=== PATIENT | female | born 1960 | race African-American/Black ===

== ENCOUNTER 2017-06-12 12:33 | Inpatient (IN) | payer MEDICARE, MEDICAID ==
[~2017-06-12] VITALS: Ht 152.4 cm; Wt 66.0 kg
[2017-06-12] MEDS ORDERED: SODIUM CHLORIDE 0.9% 1,800 ML IV ONE (12:51)
[2017-06-12] MEDS ORDERED: SODIUM CHLORIDE 0.9% 1000ML BAG (SEPSIS BOLUS) IV ONE (13:00)
[2017-06-12 13:28] LABS: BASOPHILS % 0.6 % (0.0-2.0); HEMATOCRIT. 59.2 % (36.0-48.0); HEMOGLOBIN. 19.9 g/dL (12.0-16.0); LYMPHOCYTES % 20.2 % (20.0-50.0); MEAN CORPUSCULAR HEMOGLOBIN 32.9 pg (28.0-32.0); MEAN CORPUSCULAR VOLUME 98.2 fL (81.0-99.0); MEAN PLATELET VOLUME 10.8 fl (7.4-10.4); MONOCYTES % 4.1 % (2.0-8.0); NEUTROPHILS % 75.1 % (40.0-76.0); RED BLOOD CELL COUNT 6.03 mill/uL (4.2-5.4); RED CELL DISTRIBUTION WIDTH 14.1 % (11.6-14.6)
[2017-06-12 13:30] LABS: INR 1.2; PROTHROMBIN TIME 12.6 sec (9.4-11.6)
[2017-06-12 13:31] LABS: PLATELET 205 x1000/uL (130-400)
[2017-06-12 13:39] LABS: CARBON DIOXIDE 22 mEq/L (21-32); CHLORIDE 119 mEq/L (98-107); TROPONIN I 0.02 ng/mL (0.00-0.04)
[2017-06-12 14:32] LABS: GLUCOSE URINE NEGATIVE (NEGATIVE); KETONES URINE 2+ (NEGATIVE); LEUKOCYTE ESTERASE URINE 1+ (NEGATIVE); NITRITE URINE NEGATIVE (NEGATIVE); OCCULT BLOOD URINE 1+ (NEGATIVE); PH URINE 5.5 (4.5-8.0); PROTEIN URINE 1+ (NEGATIVE); SPECIFIC GRAVITY URINE 1.027 (1.005-1.030)
[2017-06-12 14:43] LABS: CLARITY URINE CLOUDY (CLEAR); COLOR URINE YELLOW (YELLOW)
[2017-06-12 15:57] VITALS: BP 103/69
[2017-06-12 16:00] VITALS: BP 147/85
[2017-06-12] MEDS ORDERED: CYCLOBENZAPRINE 10MG TABLET PO PRN (17:00)
[2017-06-12] MEDS ORDERED: LACTULOSE 20G/30ML UDC PO SCH (17:00)
[2017-06-12] MEDS ORDERED: LEVETIRACETAM 500MG/5ML CUP PO SCH (17:00)
[2017-06-12] MEDS ORDERED: LEVETIRACETAM 500MG TABLET PO SCH (17:15)
[2017-06-12] MEDS: DEXTROSE 5% WATER 1,000 ML IV SCH (18:04)
[2017-06-12] MEDS: DIVALPROEX SODIUM 500MG ER TABLET PO SCH (18:10)
[2017-06-12] MEDS ORDERED: MAGNESIUM HYDROXIDE 400MG/5ML 30ML UDC PO PRN (19:30)
[2017-06-12] MEDS ORDERED: ACETAMINOPHEN 325MG TABLET PO PRN (19:30)
[2017-06-12] MEDS ORDERED: ZOLPIDEM TARTRATE 5MG TABLET PO PRN (19:30)
[2017-06-12] MEDS ORDERED: LORAZEPAM 2MG/ML CPJ IV PRN (19:30)
[2017-06-12 20:00] VITALS: BP 141/74
[2017-06-12] MEDS: ENOXAPARIN 30MG/0.3ML SYR SUBCUT SCH ×2 (20:00→21:22)
[2017-06-12] MEDS ORDERED: PROT40 PO (20:22)
[2017-06-12] MEDS ORDERED: CARB1TAB5 PO (20:22)
[2017-06-12] MEDS ORDERED: CITA20TA19 PO (20:22)
[2017-06-12] MEDS ORDERED: KEPP500 PO (20:22)
[2017-06-12] MEDS ORDERED: OLAN10TA3 PO (20:22)
[2017-06-12] MEDS ORDERED: TOPI50TA PO (20:22)
[2017-06-12] MEDS ORDERED: DEPER5 PO (20:31)
[2017-06-12] MEDS ORDERED: FOLI-43 PO (20:31)
[2017-06-12] MEDS: BENZTROPINE MESYLATE 1MG TABLET PO SCH (21:21)
[2017-06-12] MEDS: OLANZAPINE 10MG TABLET PO SCH (21:22)
[2017-06-13] VITALS: BP 115/63
[2017-06-13 04:00] VITALS: BP 126/68
[2017-06-13] MEDS: DEXTROSE 5% WATER 1,000 ML IV SCH ×2 (04:47→19:08)
[2017-06-13 08:00] VITALS: BP 113/68
[2017-06-13] MEDS: FOLIC ACID 1MG TABLET PO SCH (09:00)
[2017-06-13] MEDS: CITALOPRAM HYDROBROMIDE 20MG TABLET PO SCH (09:00)
[2017-06-13] MEDS: TOPIRAMATE 25MG TABLET PO SCH (09:00)
[2017-06-13] MEDS: PANTOPRAZOLE 40MG DR TABLET PO SCH (09:00)
[2017-06-13] MEDS ORDERED: DIVALPROEX SODIUM 500MG ER TABLET PO SCH (09:00)
[2017-06-13] MEDS: CARBIDOPA/LEVODOPA 25/100MG TABLET CR PO SCH ×3 (09:00→16:17)
[2017-06-13] MEDS: DIVALPROEX SODIUM 500MG ER TABLET PO SCH ×2 (09:00→16:16)
[2017-06-13] MEDS: LEVETIRACETAM 500MG TABLET PO SCH ×3 (09:00→16:17)
[2017-06-13 12:00] VITALS: BP 115/61
[2017-06-13 16:00] VITALS: BP 110/61
[2017-06-13 16:41] LABS: *AMPHETAMINES SCREEN URINE NEGATIVE (NEGATIVE); *BARBITURATES SCREEN URINE NEGATIVE (NEGATIVE); *BENZODIAZEPINES SCREEN URINE NEGATIVE (NEGATIVE); *COCAINE SCREEN URINE NEGATIVE (NEGATIVE); CANNABINOID URINE SCREEN NEGATIVE (NEGATIVE); METHADONE URINE SCREEN NEGATIVE (NEGATIVE); OPIATES URINE SCREEN NEGATIVE (NEGATIVE); PHENCYCLIDINE URINE SCREEN NEGATIVE (NEGATIVE)
[2017-06-13 16:54] LABS: BG BASE EXCESS -2.4 mmol/L (-2.0-2.0); BG CARBOXYHEMOGLOBIN 0.7 % (0.5-1.5); BG DEOXYHEMOGLOBIN 0.9 % (0.0-5.0); BG FRACTION INSPIRED OXYGEN 21; BG HCO3 ACT 21.2 mmol/L (22.0-26.0); BG METHEMOGLOBIN 0.3 % (0.0-1.5); BG OXYGEN SATURATION 99.1 % (92.0-98.5); BG OXYHEMOGLOBIN 98.1 % (94.0-97.0); BG PCO2 33.6 mmHg (35.0-45.0); BG PH 7.418 (7.350-7.450); BG SAMPLE SITE LEFT RADIAL; BG TOTAL HEMOGLOBIN 14.8 g/dL (12.0-18.0); BG VENT MODE ROOM AIR
[2017-06-13 17:41] LABS: AMMONIA 48 uMol/L (<32)
[2017-06-13 20:00] VITALS: BP 113/66
[2017-06-13] MEDS: BENZTROPINE MESYLATE 1MG TABLET PO SCH (21:00)
[2017-06-13] MEDS: OLANZAPINE 10MG TABLET PO SCH (21:00)
[2017-06-13] MEDS: ENOXAPARIN 40MG/0.4ML SYR SUBCUT SCH (23:27)
[2017-06-14] VITALS: BP 97/63
[2017-06-14 04:00] VITALS: BP 99/62
[2017-06-14 08:00] VITALS: BP 99/60
[2017-06-14] MEDS: CITALOPRAM HYDROBROMIDE 20MG TABLET PO SCH ×2 (08:01→13:40)
[2017-06-14] MEDS: DIVALPROEX SODIUM 500MG ER TABLET PO SCH ×2 (08:01→15:41)
[2017-06-14] MEDS: FOLIC ACID 1MG TABLET PO SCH (08:01)
[2017-06-14] MEDS: PANTOPRAZOLE 40MG DR TABLET PO SCH (08:02)
[2017-06-14] MEDS: LEVETIRACETAM 500MG TABLET PO SCH ×2 (08:02→13:41)
[2017-06-14] MEDS: CARBIDOPA/LEVODOPA 25/100MG TABLET CR PO SCH ×3 (08:02→15:41)
[2017-06-14] MEDS: TOPIRAMATE 25MG TABLET PO SCH ×2 (08:02→13:41)
[2017-06-14] MEDS: DEXTROSE 5% WATER 1,000 ML IV SCH (10:29)
[2017-06-14 12:00] VITALS: BP 82/46
[2017-06-14 15:18] LABS: CLARITY URINE TURBID (CLEAR); COLOR URINE YELLOW (YELLOW); GLUCOSE URINE 1+ (NEGATIVE); KETONES URINE NEGATIVE (NEGATIVE); LEUKOCYTE ESTERASE URINE 3+ (NEGATIVE); NITRITE URINE POSITIVE (NEGATIVE); OCCULT BLOOD URINE 3+ (NEGATIVE); PH URINE >=9.0 (4.5-8.0); PROTEIN URINE 4+ (NEGATIVE)
[2017-06-14] MEDS: LACTULOSE 20G/30ML UDC PO SCH (15:41)
[2017-06-14 16:00] VITALS: BP 94/56
[2017-06-14] MEDS: LEVETIRACETAM 500 MG in SODIUM CHLORIDE 0.9% 100 ML IV SCH (16:03)
[2017-06-14 17:24] LABS: BASOPHILS % 0.2 % (0.0-2.0); EOSINOPHILS % 0.5 % (0.0-5.0); HEMOGLOBIN. 13.2 g/dL (12.0-16.0); LYMPHOCYTES % 24.2 % (20.0-50.0); MEAN CORPUSCULAR HEMOGLOBIN 33.1 pg (28.0-32.0); MEAN CORPUSCULAR VOLUME 97.4 fL (81.0-99.0); MEAN PLATELET VOLUME 11.4 fl (7.4-10.4); MONOCYTES % 5.4 % (2.0-8.0); NEUTROPHILS % 69.7 % (40.0-76.0); PLATELET 83 x1000/uL (130-400); RED CELL DISTRIBUTION WIDTH 13.3 % (11.6-14.6)
[2017-06-14 17:42] LABS: AMMONIA 46 uMol/L (<32)
[2017-06-14 17:48] LABS: CARBON DIOXIDE 27 mEq/L (21-32); CHLORIDE 109 mEq/L (98-107); PHOSPHORUS 1.9 mg/dL (2.5-4.9)
[2017-06-14 20:00] VITALS: BP 112/62
[2017-06-14] MEDS: ENOXAPARIN 40MG/0.4ML SYR SUBCUT SCH (21:00)
[2017-06-14] MEDS: BENZTROPINE MESYLATE 1MG TABLET PO SCH (21:00)
[2017-06-14] MEDS: OLANZAPINE 10MG TABLET PO SCH (21:00)
[2017-06-15] VITALS: BP 91/49
[2017-06-15] MEDS: DEXTROSE 5% WATER 1,000 ML IV SCH (03:39)
[2017-06-15] MEDS: LEVETIRACETAM 500 MG in SODIUM CHLORIDE 0.9% 100 ML IV SCH ×2 (03:42→16:12)
[2017-06-15 04:00] VITALS: BP 92/50
[2017-06-15 06:48] LABS: BASOPHILS % 0.2 % (0.0-2.0); EOSINOPHILS % 0.9 % (0.0-5.0); HEMATOCRIT. 38.1 % (36.0-48.0); LYMPHOCYTES % 20.7 % (20.0-50.0); MEAN CORPUSCULAR HEMOGLOBIN 32.9 pg (28.0-32.0); MEAN CORPUSCULAR VOLUME 96.7 fL (81.0-99.0); MEAN PLATELET VOLUME 10.4 fl (7.4-10.4); MONOCYTES % 5.5 % (2.0-8.0); NEUTROPHILS % 72.7 % (40.0-76.0); PLATELET 77 x1000/uL (130-400); RED BLOOD CELL COUNT 3.94 mill/uL (4.2-5.4); RED CELL DISTRIBUTION WIDTH 12.9 % (11.6-14.6)
[2017-06-15 06:49] LABS: AMMONIA 43 uMol/L (<32)
[2017-06-15 07:07] LABS: CARBON DIOXIDE 27 mEq/L (21-32); CHLORIDE 111 mEq/L (98-107); PHOSPHORUS 2.4 mg/dL (2.5-4.9)
[2017-06-15 08:00] VITALS: BP 92/57
[2017-06-15] MEDS: CITALOPRAM HYDROBROMIDE 20MG TABLET PO SCH (09:00)
[2017-06-15] MEDS: TOPIRAMATE 25MG TABLET PO SCH (09:00)
[2017-06-15] MEDS: CARBIDOPA/LEVODOPA 25/100MG TABLET CR PO SCH ×3 (09:00→16:28)
[2017-06-15] MEDS: LACTULOSE 20G/30ML UDC PO SCH ×2 (09:00→16:28)
[2017-06-15] MEDS: PANTOPRAZOLE 40MG DR TABLET PO SCH (09:00)
[2017-06-15] MEDS: DIVALPROEX SODIUM 500MG ER TABLET PO SCH ×2 (09:00→16:28)
[2017-06-15] MEDS: DEXT 5%/0.45% NACL KCL 20MEQ/L 1,000 ML IV SCH (11:53)
[2017-06-15 12:00] VITALS: BP 90/57
[2017-06-15 16:00] VITALS: BP 117/61
[2017-06-15 20:00] VITALS: BP 93/59
[2017-06-15] MEDS ORDERED: OLANZAPINE 10MG TABLET PO SCH (21:00)
[2017-06-15] MEDS: BENZTROPINE MESYLATE 1MG TABLET PO SCH (21:00)
[2017-06-16] VITALS: BP 97/52
[2017-06-16] MEDS: LEVETIRACETAM 500 MG in SODIUM CHLORIDE 0.9% 100 ML IV SCH ×2 (03:14→17:05)
[2017-06-16] MEDS: DEXT 5%/0.45% NACL KCL 20MEQ/L 1,000 ML IV SCH ×2 (03:14→17:01)
[2017-06-16 04:00] VITALS: BP 96/58
[2017-06-16 08:00] VITALS: BP 126/81
[2017-06-16 12:00] VITALS: BP 89/49
[2017-06-16] MEDS: CARBIDOPA/LEVODOPA 25/100MG TABLET CR PO SCH ×2 (13:00→13:20)
[2017-06-16] MEDS: CITALOPRAM HYDROBROMIDE 20MG TABLET PO SCH (13:19)
[2017-06-16] MEDS: LACTULOSE 20G/30ML UDC PO SCH (13:19)
[2017-06-16] MEDS: TOPIRAMATE 25MG TABLET PO SCH (13:20)
[2017-06-16] MEDS: DIVALPROEX SODIUM 500MG ER TABLET PO SCH (13:20)
[2017-06-16] MEDS: PANTOPRAZOLE 40MG DR TABLET PO SCH (13:20)
[2017-06-16] MEDS ORDERED: ACETAMINOPHEN 650MG/20.3ML UDC NG PRN (14:00)
[2017-06-16] MEDS ORDERED: MAGNESIUM HYDROXIDE 400MG/5ML 30ML UDC NG PRN (15:00)
[2017-06-16 16:00] VITALS: BP 93/56
[2017-06-16] MEDS: VALPROATE SODIUM 250MG/5ML UDC NG SCH (17:01)
[2017-06-16] MEDS: CARBIDOPA/LEVODOPA 25/100MG TABLET NG SCH ×2 (17:01→21:19)
[2017-06-16] MEDS: LACTULOSE 20G/30ML UDC NG SCH (17:05)
[2017-06-16] MEDS ORDERED: ACETAMINOPHEN 325MG TABLET NG PRN (19:30)
[2017-06-16 20:00] VITALS: BP 115/69
[2017-06-16] MEDS ORDERED: OLANZAPINE 10MG TABLET NG SCH (21:00)
[2017-06-16] MEDS ORDERED: ZOLPIDEM TARTRATE 5MG TABLET NG PRN (21:00)
[2017-06-16] MEDS: BENZTROPINE MESYLATE 1MG TABLET NG SCH (21:19)
[2017-06-17] VITALS: BP 100/58
[2017-06-17] MEDS: DEXT 5%/0.45% NACL KCL 20MEQ/L 1,000 ML IV SCH ×2 (03:20→17:04)
[2017-06-17] MEDS: LEVETIRACETAM 500 MG in SODIUM CHLORIDE 0.9% 100 ML IV SCH ×2 (03:20→17:03)
[2017-06-17 04:00] VITALS: BP 113/65
[2017-06-17] MEDS: LANSOPRAZOLE 30MG DR CAPSULE NG SCH (05:42)
[2017-06-17] MEDS: CARBIDOPA/LEVODOPA 25/100MG TABLET NG SCH ×3 (05:42→20:52)
[2017-06-17 08:00] VITALS: BP 113/62
[2017-06-17] MEDS: TOPIRAMATE 25MG TABLET NG SCH (08:36)
[2017-06-17] MEDS: CITALOPRAM HYDROBROMIDE 20MG TABLET NG SCH (08:36)
[2017-06-17] MEDS: VALPROATE SODIUM 250MG/5ML UDC NG SCH ×2 (08:37→17:05)
[2017-06-17] MEDS: LACTULOSE 20G/30ML UDC NG SCH ×2 (09:00→17:04)
[2017-06-17 12:00] VITALS: BP 114/70
[2017-06-17 16:00] VITALS: BP 125/69
[2017-06-17 20:00] VITALS: BP 112/71
[2017-06-17] MEDS: BENZTROPINE MESYLATE 1MG TABLET NG SCH (20:52)
[2017-06-18] VITALS: BP 112/72
[2017-06-18 04:00] VITALS: BP 107/59
[2017-06-18] MEDS: LEVETIRACETAM 500 MG in SODIUM CHLORIDE 0.9% 100 ML IV SCH ×2 (04:00→17:02)
[2017-06-18] MEDS: DEXT 5%/0.45% NACL KCL 20MEQ/L 1,000 ML IV SCH ×2 (06:47→21:18)
[2017-06-18] MEDS: CARBIDOPA/LEVODOPA 25/100MG TABLET NG SCH ×3 (06:47→21:18)
[2017-06-18] MEDS: LANSOPRAZOLE 30MG DR CAPSULE NG SCH (06:47)
[2017-06-18 07:21] LABS: BASOPHILS % 0.3 % (0.0-2.0); HEMOGLOBIN. 13.9 g/dL (12.0-16.0); LYMPHOCYTES % 25.2 % (20.0-50.0); MEAN CORPUSCULAR VOLUME 97.5 fL (81.0-99.0); MEAN PLATELET VOLUME 10.3 fl (7.4-10.4); MONOCYTES % 6.8 % (2.0-8.0); NEUTROPHILS % 66.7 % (40.0-76.0); PLATELET 112 x1000/uL (130-400)
[2017-06-18 07:35] LABS: CARBON DIOXIDE 27 mEq/L (21-32); CHLORIDE 110 mEq/L (98-107)
[2017-06-18 08:00] VITALS: BP 108/66
[2017-06-18] MEDS: VALPROATE SODIUM 250MG/5ML UDC NG SCH ×2 (09:15→17:03)
[2017-06-18] MEDS: LACTULOSE 20G/30ML UDC NG SCH ×2 (09:15→17:03)
[2017-06-18] MEDS: CITALOPRAM HYDROBROMIDE 20MG TABLET NG SCH (09:15)
[2017-06-18] MEDS: TOPIRAMATE 25MG TABLET NG SCH (09:15)
[2017-06-18 12:00] VITALS: BP 120/72
[2017-06-18 12:36] LABS: INR 1.2; PARTIAL THROMBOPLASTIN TIME 28.2 sec (23.4-31.0); PROTHROMBIN TIME 12.5 sec (9.4-11.6)
[2017-06-18] MEDS: LACTULOSE 20G/30ML UDC PO SCH ×2 (15:39→21:18)
[2017-06-18 16:00] VITALS: BP 116/60
[2017-06-18] MEDS ORDERED: CEFAZOLIN SODIUM 500MG/VIAL IM ONE (17:00)
[2017-06-18 20:00] VITALS: BP 115/60
[2017-06-18] MEDS ORDERED: PANTOPRAZOLE SODIUM 40 MG/VIAL IV SCH (21:00)
[2017-06-18] MEDS: CEFAZOLIN 1000MG PREMIX 50 ML IV SCH (21:18)
[2017-06-18] MEDS: BENZTROPINE MESYLATE 1MG TABLET NG SCH (21:18)
[2017-06-18] MEDS ORDERED: CEFAZOLIN SODIUM 1000MG/VIAL IV SCH (22:00)
[2017-06-19] VITALS: BP 114/73
[2017-06-19 04:00] VITALS: BP 110/68
[2017-06-19] MEDS: CEFAZOLIN 1000MG PREMIX 50 ML IV SCH ×3 (04:20→20:34)
[2017-06-19] MEDS: LEVETIRACETAM 500 MG in SODIUM CHLORIDE 0.9% 100 ML IV SCH ×2 (04:20→20:34)
[2017-06-19 05:36] LABS: BASOPHILS % 0.4 % (0.0-2.0); EOSINOPHILS % 1.5 % (0.0-5.0); HEMATOCRIT. 36.8 % (36.0-48.0); HEMOGLOBIN. 12.5 g/dL (12.0-16.0); LYMPHOCYTES % 26.6 % (20.0-50.0); MEAN CORPUSCULAR HEMOGLOBIN 32.6 pg (28.0-32.0); MEAN CORPUSCULAR VOLUME 95.9 fL (81.0-99.0); MEAN PLATELET VOLUME 10.5 fl (7.4-10.4); MONOCYTES % 8.2 % (2.0-8.0); NEUTROPHILS % 63.3 % (40.0-76.0); PLATELET 129 x1000/uL (130-400); RED BLOOD CELL COUNT 3.84 mill/uL (4.2-5.4); RED CELL DISTRIBUTION WIDTH 12.7 % (11.6-14.6)
[2017-06-19 05:41] LABS: INR 1.2; PARTIAL THROMBOPLASTIN TIME 27.9 sec (23.4-31.0)
[2017-06-19] MEDS: CARBIDOPA/LEVODOPA 25/100MG TABLET NG SCH ×3 (06:00→20:33)
[2017-06-19] MEDS: LACTULOSE 20G/30ML UDC PO SCH ×3 (06:00→20:34)
[2017-06-19] MEDS: LANSOPRAZOLE 30MG DR CAPSULE NG SCH (06:14)
[2017-06-19 06:25] LABS: AMMONIA 44 uMol/L (<32)
[2017-06-19 07:01] LABS: CARBON DIOXIDE 26 mEq/L (21-32); CHLORIDE 109 mEq/L (98-107)
[2017-06-19 08:00] VITALS: BP 114/68
[2017-06-19] MEDS: VALPROATE SODIUM 250MG/5ML UDC NG SCH ×2 (09:00→18:27)
[2017-06-19] MEDS: TOPIRAMATE 100MG TABLET NG SCH (09:00)
[2017-06-19] MEDS: CITALOPRAM HYDROBROMIDE 20MG TABLET NG SCH (09:00)
[2017-06-19] MEDS: DEXT 5%/0.45% NACL KCL 20MEQ/L 1,000 ML IV SCH ×2 (09:55→20:34)
[2017-06-19 12:00] VITALS: BP 116/64
[2017-06-19] MEDS ORDERED: SIMETHICONE 40 MG/0.6 ML 30ML ONE (14:35)
[2017-06-19] MEDS ORDERED: SODIUM CHLORIDE 0.9% 10ML VIAL ONE (14:35)
[2017-06-19] MEDS ORDERED: MIDAZOLAM HCL 5 MG/5 ML VIAL ONE (15:28)
[2017-06-19] MEDS ORDERED: FENTANYL CITRATE/PF 50MCG/ML 2ML VIAL ONE (15:28)
[2017-06-19 16:00] VITALS: BP 105/66
[2017-06-19 20:00] VITALS: BP 113/72
[2017-06-19] MEDS: BENZTROPINE MESYLATE 1MG TABLET NG SCH (20:33)
[2017-06-20] VITALS (7 sets, daily range): BP systolic 88–104; BP diastolic 48–59
[2017-06-20] MEDS: CEFAZOLIN 1000MG PREMIX 50 ML IV SCH ×3 (04:07→21:25)
[2017-06-20] MEDS: LEVETIRACETAM 500 MG in SODIUM CHLORIDE 0.9% 100 ML IV SCH ×2 (04:08→15:24)
[2017-06-20] MEDS: LACTULOSE 20G/30ML UDC PO SCH ×3 (07:10→21:56)
[2017-06-20] MEDS: CARBIDOPA/LEVODOPA 25/100MG TABLET NG SCH ×3 (07:10→21:56)
[2017-06-20] MEDS: LANSOPRAZOLE 30MG DR CAPSULE NG SCH (07:10)
[2017-06-20] MEDS: TOPIRAMATE 100MG TABLET NG SCH (08:58)
[2017-06-20] MEDS: VALPROATE SODIUM 250MG/5ML UDC NG SCH ×2 (08:58→17:34)
[2017-06-20] MEDS: CITALOPRAM HYDROBROMIDE 20MG TABLET NG SCH (08:58)
[2017-06-20] MEDS ORDERED: SODIUM CHLORIDE 0.9% 250 ML IV NR (10:30)
[2017-06-20] MEDS ORDERED: SODIUM CHLORIDE 0.9% 250 ML IV ONE ×2 (10:50→15:50)
[2017-06-20] MEDS ORDERED: SODIUM CHLORIDE 0.9% 250 ML IV SCH ×2 (11:00→11:30)
[2017-06-20] MEDS: DEXT 5%/0.45% NACL KCL 20MEQ/L 1,000 ML IV SCH (12:58)
[2017-06-20] MEDS: SODIUM CHLORIDE 0.9% 1,000 ML IV SCH (17:34)
[2017-06-20] MEDS: BENZTROPINE MESYLATE 1MG TABLET NG SCH (21:25)
[2017-06-21] VITALS (19 sets, daily range): BP systolic 79–145; BP diastolic 40–121
[2017-06-21] MEDS: CEFAZOLIN 1000MG PREMIX 50 ML IV SCH ×3 (03:25→21:22)
[2017-06-21] MEDS: LEVETIRACETAM 500 MG in SODIUM CHLORIDE 0.9% 100 ML IV SCH (03:25)
[2017-06-21] MEDS: SODIUM CHLORIDE 0.9% 1,000 ML IV SCH ×2 (03:26→19:44)
[2017-06-21] MEDS: LANSOPRAZOLE 30MG DR CAPSULE NG SCH (06:47)
[2017-06-21] MEDS: CARBIDOPA/LEVODOPA 25/100MG TABLET NG SCH ×3 (06:47→22:47)
[2017-06-21] MEDS: LACTULOSE 20G/30ML UDC PO SCH ×3 (06:50→21:31)
[2017-06-21] MEDS: VALPROATE SODIUM 250MG/5ML UDC NG SCH ×2 (08:56→17:33)
[2017-06-21] MEDS: CITALOPRAM HYDROBROMIDE 20MG TABLET NG SCH (08:57)
[2017-06-21] MEDS: TOPIRAMATE 100MG TABLET NG SCH (08:57)
[2017-06-21] MEDS: SODIUM CHLORIDE 1000MG TABLET PO SCH ×2 (12:26→17:33)
[2017-06-21] MEDS: FLUDROCORTISONE ACETATE 0.1MG TABLET NG SCH ×2 (13:47→21:30)
[2017-06-21] MEDS ORDERED: LEVETIRACETAM 500MG TABLET PEG SCH (21:00)
[2017-06-21] MEDS: LEVETIRACETAM 500MG/5ML CUP PEG SCH (21:29)
[2017-06-21] MEDS: BENZTROPINE MESYLATE 1MG TABLET NG SCH (21:30)
[2017-06-21] MEDS ORDERED: VASOPRESSIN 10 UNIT in SODIUM CHLORIDE 0.9% 99.5 ML IV PRN (21:30)
[2017-06-21] MEDS: NOREPINEPHRINE 8 MG in DEXT 5% WATER 242 ML IV PRN (21:46)
[2017-06-21 23:05] LABS: CARBON DIOXIDE 26 mEq/L (21-32); CHLORIDE 110 mEq/L (98-107); CREATINE KINASE 39 IU/L (26-192); CREATINE KINASE MB FRACTION 0.8 ng/mL (0.5-3.6); TROPONIN I < 0.02 ng/mL (0.00-0.04)
[2017-06-22] VITALS (72 sets, daily range): BP systolic 80–123; BP diastolic 45–82
[2017-06-22] MEDS: CEFAZOLIN 1000MG PREMIX 50 ML IV SCH ×3 (04:21→19:50)
[2017-06-22] MEDS: FLUDROCORTISONE ACETATE 0.1MG TABLET NG SCH ×3 (05:44→21:54)
[2017-06-22] MEDS: CARBIDOPA/LEVODOPA 25/100MG TABLET NG SCH ×3 (05:44→21:54)
[2017-06-22] MEDS: LACTULOSE 20G/30ML UDC PO SCH ×3 (06:03→21:55)
[2017-06-22 06:33] LABS: CHLORIDE 111 mEq/L (98-107)
[2017-06-22 06:50] LABS: CARBON DIOXIDE 20 mEq/L (21-32); CREATINE KINASE 48 IU/L (26-192); CREATINE KINASE MB FRACTION 0.5 ng/mL (0.5-3.6); TROPONIN I < 0.02 ng/mL (0.00-0.04)
[2017-06-22 09:04] LABS: BASOPHILS % 0.3 % (0.0-2.0); EOSINOPHILS % 0.9 % (0.0-5.0); HEMATOCRIT. 35.6 % (36.0-48.0); HEMOGLOBIN. 12.2 g/dL (12.0-16.0); LYMPHOCYTES % 19.6 % (20.0-50.0); MEAN CORPUSCULAR HEMOGLOBIN 32.8 pg (28.0-32.0); MEAN CORPUSCULAR VOLUME 96.1 fL (81.0-99.0); MEAN PLATELET VOLUME 9.3 fl (7.4-10.4); MONOCYTES % 5.4 % (2.0-8.0); NEUTROPHILS % 73.8 % (40.0-76.0); PLATELET 162 x1000/uL (130-400); RED CELL DISTRIBUTION WIDTH 12.5 % (11.6-14.6)
[2017-06-22] MEDS: LEVETIRACETAM 500MG/5ML CUP PEG SCH ×2 (09:19→20:54)
[2017-06-22] MEDS: CITALOPRAM HYDROBROMIDE 20MG TABLET NG SCH (09:20)
[2017-06-22] MEDS: TOPIRAMATE 100MG TABLET NG SCH (09:20)
[2017-06-22] MEDS: VALPROATE SODIUM 250MG/5ML UDC NG SCH ×2 (09:20→17:23)
[2017-06-22] MEDS: SODIUM CHLORIDE 1000MG TABLET PO SCH ×3 (09:20→17:23)
[2017-06-22] MEDS: LANSOPRAZOLE 30MG DR CAPSULE NG SCH (09:20)
[2017-06-22] MEDS: SODIUM CHLORIDE 0.9% 1,000 ML IV SCH (09:21)
[2017-06-22] MEDS ORDERED: MAGNESIUM 2 G PREMIX 50 ML IV SCH (11:00)
[2017-06-22] MEDS: BENZTROPINE MESYLATE 1MG TABLET NG SCH (20:55)
[2017-06-23] VITALS (96 sets, daily range): BP systolic 58–138; BP diastolic 32–90
[2017-06-23] MEDS: CEFAZOLIN 1000MG PREMIX 50 ML IV SCH ×3 (03:56→19:31)
[2017-06-23] MEDS: FLUDROCORTISONE ACETATE 0.1MG TABLET NG SCH ×3 (05:35→22:31)
[2017-06-23] MEDS: CARBIDOPA/LEVODOPA 25/100MG TABLET NG SCH ×3 (05:35→22:31)
[2017-06-23] MEDS: LACTULOSE 20G/30ML UDC PO SCH ×3 (05:35→22:31)
[2017-06-23] MEDS: SODIUM CHLORIDE 0.9% 1,000 ML IV SCH ×3 (05:36→20:36)
[2017-06-23 06:43] LABS: BASOPHILS % 0.5 % (0.0-2.0); EOSINOPHILS % 1.4 % (0.0-5.0); HEMATOCRIT. 36.3 % (36.0-48.0); HEMOGLOBIN. 12.5 g/dL (12.0-16.0); LYMPHOCYTES % 25.9 % (20.0-50.0); MEAN CORPUSCULAR HEMOGLOBIN 33.2 pg (28.0-32.0); MEAN CORPUSCULAR VOLUME 96.4 fL (81.0-99.0); MEAN PLATELET VOLUME 9.2 fl (7.4-10.4); MONOCYTES % 7.4 % (2.0-8.0); NEUTROPHILS % 64.8 % (40.0-76.0); PLATELET 182 x1000/uL (130-400); RED BLOOD CELL COUNT 3.76 mill/uL (4.2-5.4); RED CELL DISTRIBUTION WIDTH 12.6 % (11.6-14.6)
[2017-06-23 07:04] LABS: CARBON DIOXIDE 31 mEq/L (21-32); CHLORIDE 108 mEq/L (98-107); HDL CHOLESTEROL 23 mg/dL (40-59); LDL CHOLESTEROL 138 mg/dL (5-100); TROPONIN I < 0.02 ng/mL (0.00-0.04)
[2017-06-23] MEDS: LEVETIRACETAM 500MG/5ML CUP PEG SCH ×2 (08:42→21:00)
[2017-06-23] MEDS: LANSOPRAZOLE 30MG DR CAPSULE NG SCH (08:42)
[2017-06-23] MEDS: VALPROATE SODIUM 250MG/5ML UDC NG SCH ×2 (08:42→17:43)
[2017-06-23] MEDS: SODIUM CHLORIDE 1000MG TABLET PO SCH ×3 (08:42→17:44)
[2017-06-23] MEDS: CITALOPRAM HYDROBROMIDE 20MG TABLET NG SCH (08:42)
[2017-06-23] MEDS: TOPIRAMATE 100MG TABLET NG SCH (08:42)
[2017-06-23 09:01] LABS: AMMONIA 19 uMol/L (<32)
[2017-06-23] MEDS: LEVOTHYROXINE SODIUM 50MCG TABLET PO SCH (09:51)
[2017-06-23] MEDS: MIDODRINE HCL 5MG TABLET PO SCH ×2 (12:35→17:44)
[2017-06-23] MEDS: BENZTROPINE MESYLATE 1MG TABLET NG SCH (21:01)
[2017-06-24] VITALS (107 sets, daily range): BP systolic 76–135; BP diastolic 40–78
[2017-06-24] MEDS: NOREPINEPHRINE 8 MG in DEXT 5% WATER 242 ML IV PRN (01:51)
[2017-06-24] MEDS: CEFAZOLIN 1000MG PREMIX 50 ML IV SCH ×3 (03:45→20:46)
[2017-06-24] MEDS: LACTULOSE 20G/30ML UDC PO SCH (05:21)
[2017-06-24] MEDS: FLUDROCORTISONE ACETATE 0.1MG TABLET NG SCH ×3 (05:22→21:42)
[2017-06-24] MEDS: CARBIDOPA/LEVODOPA 25/100MG TABLET NG SCH ×3 (05:22→21:42)
[2017-06-24] MEDS ORDERED: COSYNTROPIN 0.25MG/ML VIAL IV SCH (06:00)
[2017-06-24] MEDS: CITALOPRAM HYDROBROMIDE 20MG TABLET NG SCH (08:29)
[2017-06-24] MEDS: LEVOTHYROXINE SODIUM 50MCG TABLET PO SCH (08:29)
[2017-06-24] MEDS: SODIUM CHLORIDE 1000MG TABLET PO SCH ×3 (08:29→17:54)
[2017-06-24] MEDS: LANSOPRAZOLE 30MG DR CAPSULE NG SCH (08:29)
[2017-06-24] MEDS: MIDODRINE HCL 5MG TABLET PO SCH ×3 (08:29→21:42)
[2017-06-24] MEDS: VALPROATE SODIUM 250MG/5ML UDC NG SCH ×2 (08:30→17:53)
[2017-06-24] MEDS: TOPIRAMATE 100MG TABLET NG SCH (08:30)
[2017-06-24] MEDS: LEVETIRACETAM 500MG/5ML CUP PEG SCH ×2 (08:30→20:46)
[2017-06-24] MEDS: ENOXAPARIN 40MG/0.4ML SYR SUBCUT SCH (13:11)
[2017-06-24] MEDS: SODIUM CHLORIDE 0.9% 1,000 ML IV SCH ×2 (13:14→23:48)
[2017-06-24] MEDS: BENZTROPINE MESYLATE 1MG TABLET NG SCH (20:46)
[2017-06-24] MEDS: MICONAZOLE NITRATE 2% OINT 71GM TOP SCH (20:47)
[2017-06-25] VITALS (106 sets, daily range): BP systolic 82–136; BP diastolic 41–81
[2017-06-25] MEDS: CEFAZOLIN 1000MG PREMIX 50 ML IV SCH (04:47)
[2017-06-25] MEDS: CARBIDOPA/LEVODOPA 25/100MG TABLET NG SCH ×3 (05:59→21:38)
[2017-06-25] MEDS: FLUDROCORTISONE ACETATE 0.1MG TABLET NG SCH ×3 (05:59→21:38)
[2017-06-25] MEDS ORDERED: COSYNTROPIN 0.25MG/ML VIAL IV NR (06:00)
[2017-06-25] MEDS: MIDODRINE HCL 5MG TABLET PO SCH ×3 (06:00→20:39)
[2017-06-25 06:08] LABS: BASOPHILS % 0.7 % (0.0-2.0); EOSINOPHILS % 2.4 % (0.0-5.0); HEMATOCRIT. 32.1 % (36.0-48.0); HEMOGLOBIN. 10.9 g/dL (12.0-16.0); LYMPHOCYTES % 40.4 % (20.0-50.0); MEAN CORPUSCULAR HEMOGLOBIN 32.8 pg (28.0-32.0); MEAN CORPUSCULAR VOLUME 96.9 fL (81.0-99.0); NEUTROPHILS % 49.5 % (40.0-76.0); PLATELET 171 x1000/uL (130-400); RED BLOOD CELL COUNT 3.31 mill/uL (4.2-5.4); RED CELL DISTRIBUTION WIDTH 12.9 % (11.6-14.6)
[2017-06-25 06:25] LABS: CARBON DIOXIDE 34 mEq/L (21-32); CHLORIDE 110 mEq/L (98-107)
[2017-06-25] MEDS: SODIUM CHLORIDE 1000MG TABLET PO SCH ×3 (08:20→17:57)
[2017-06-25] MEDS: LEVOTHYROXINE SODIUM 50MCG TABLET PO SCH (08:36)
[2017-06-25] MEDS: TOPIRAMATE 100MG TABLET NG SCH (08:36)
[2017-06-25] MEDS: CITALOPRAM HYDROBROMIDE 20MG TABLET NG SCH (08:36)
[2017-06-25] MEDS: LEVETIRACETAM 500MG/5ML CUP PEG SCH ×2 (08:36→20:38)
[2017-06-25] MEDS: LANSOPRAZOLE 30MG DR CAPSULE NG SCH (08:36)
[2017-06-25] MEDS: VALPROATE SODIUM 250MG/5ML UDC NG SCH ×2 (08:36→17:57)
[2017-06-25] MEDS: MICONAZOLE NITRATE 2% OINT 71GM TOP SCH ×2 (08:37→21:38)
[2017-06-25] MEDS ORDERED: CEFAZOLIN 1000MG PREMIX 50 ML IV SCH (11:00)
[2017-06-25] MEDS: CEPHALEXIN 250 MG/5 ML 100ML NG SCH ×2 (12:31→17:57)
[2017-06-25] MEDS: FOLIC ACID 1MG TABLET PO SCH (12:31)
[2017-06-25] MEDS: ENOXAPARIN 40MG/0.4ML SYR SUBCUT SCH (12:32)
[2017-06-25] MEDS ORDERED: DIVALPROEX SODIUM 500MG ER TABLET PO SCH (17:00)
[2017-06-25] MEDS: BENZTROPINE MESYLATE 1MG TABLET NG SCH (20:38)
[2017-06-26] VITALS (42 sets, daily range): BP systolic 83–122; BP diastolic 47–96
[2017-06-26] MEDS: CEPHALEXIN 250 MG/5 ML 100ML NG SCH ×5 (00:36→22:48)
[2017-06-26] MEDS: MIDODRINE HCL 5MG TABLET PO SCH ×4 (02:18→20:43)
[2017-06-26 05:37] LABS: BASOPHILS % 0.5 % (0.0-2.0); EOSINOPHILS % 1.5 % (0.0-5.0); HEMATOCRIT. 31.2 % (36.0-48.0); HEMOGLOBIN. 10.6 g/dL (12.0-16.0); LYMPHOCYTES % 38.9 % (20.0-50.0); MEAN CORPUSCULAR HEMOGLOBIN 32.9 pg (28.0-32.0); MEAN CORPUSCULAR VOLUME 96.7 fL (81.0-99.0); MEAN PLATELET VOLUME 9.2 fl (7.4-10.4); MONOCYTES % 6.6 % (2.0-8.0); NEUTROPHILS % 52.5 % (40.0-76.0); PLATELET 185 x1000/uL (130-400); RED BLOOD CELL COUNT 3.23 mill/uL (4.2-5.4); RED CELL DISTRIBUTION WIDTH 12.8 % (11.6-14.6)
[2017-06-26] MEDS: FLUDROCORTISONE ACETATE 0.1MG TABLET NG SCH ×3 (05:43→22:48)
[2017-06-26] MEDS: CARBIDOPA/LEVODOPA 25/100MG TABLET NG SCH ×3 (05:43→22:48)
[2017-06-26 05:57] LABS: CARBON DIOXIDE 33 mEq/L (21-32); CHLORIDE 107 mEq/L (98-107)
[2017-06-26] MEDS: LEVOTHYROXINE SODIUM 50MCG TABLET PO SCH (07:43)
[2017-06-26] MEDS: LANSOPRAZOLE 30MG DR CAPSULE NG SCH (07:43)
[2017-06-26] MEDS: SODIUM CHLORIDE 1000MG TABLET PO SCH ×3 (07:43→17:20)
[2017-06-26] MEDS: VALPROATE SODIUM 250MG/5ML UDC NG SCH ×2 (09:07→17:49)
[2017-06-26] MEDS: TOPIRAMATE 100MG TABLET NG SCH (09:07)
[2017-06-26] MEDS: MICONAZOLE NITRATE 2% OINT 71GM TOP SCH ×2 (09:08→22:49)
[2017-06-26] MEDS: CITALOPRAM HYDROBROMIDE 20MG TABLET NG SCH (09:08)
[2017-06-26] MEDS: LEVETIRACETAM 500MG/5ML CUP PEG SCH ×2 (09:08→22:48)
[2017-06-26] MEDS: FOLIC ACID 1MG TABLET PO SCH (10:52)
[2017-06-26] MEDS: ENOXAPARIN 40MG/0.4ML SYR SUBCUT SCH (11:33)
[2017-06-26] MEDS: HYDROCORTISONE 20MG TABLET PO SCH ×2 (11:34→18:22)
[2017-06-26] MEDS: BENZTROPINE MESYLATE 1MG TABLET NG SCH (22:49)
[2017-06-27] VITALS (12 sets, daily range): BP systolic 93–127; BP diastolic 56–82
[2017-06-27] MEDS: MIDODRINE HCL 5MG TABLET PO SCH ×4 (02:45→20:11)
[2017-06-27] MEDS: CEPHALEXIN 250 MG/5 ML 100ML NG SCH ×3 (06:15→17:39)
[2017-06-27] MEDS: LANSOPRAZOLE 30MG DR CAPSULE NG SCH (06:15)
[2017-06-27] MEDS: LEVOTHYROXINE SODIUM 50MCG TABLET PO SCH (06:15)
[2017-06-27] MEDS: CARBIDOPA/LEVODOPA 25/100MG TABLET NG SCH ×3 (06:15→21:49)
[2017-06-27] MEDS: FLUDROCORTISONE ACETATE 0.1MG TABLET NG SCH ×3 (06:15→21:49)
[2017-06-27] MEDS: SODIUM CHLORIDE 1000MG TABLET PO SCH ×3 (08:14→17:39)
[2017-06-27] MEDS: CITALOPRAM HYDROBROMIDE 20MG TABLET NG SCH (08:14)
[2017-06-27] MEDS: VALPROATE SODIUM 250MG/5ML UDC NG SCH ×2 (08:14→17:39)
[2017-06-27] MEDS: LEVETIRACETAM 500MG/5ML CUP PEG SCH ×2 (08:14→21:49)
[2017-06-27] MEDS: FOLIC ACID 1MG TABLET PO SCH (08:14)
[2017-06-27] MEDS: HYDROCORTISONE 20MG TABLET PO SCH ×2 (08:14→18:20)
[2017-06-27] MEDS: MICONAZOLE NITRATE 2% OINT 71GM TOP SCH ×2 (08:19→21:49)
[2017-06-27] MEDS ORDERED: OLANZAPINE 5MG TABLET PO SCH (09:30)
[2017-06-27] MEDS: TOPIRAMATE 100MG TABLET NG SCH (11:00)
[2017-06-27] MEDS: ENOXAPARIN 40MG/0.4ML SYR SUBCUT SCH (12:29)
[2017-06-27] MEDS: BENZTROPINE MESYLATE 1MG TABLET NG SCH (21:49)
[2017-06-28] VITALS (13 sets, daily range): BP systolic 96–126; BP diastolic 57–77
[2017-06-28] MEDS: MIDODRINE HCL 5MG TABLET PO SCH ×4 (00:58→20:22)
[2017-06-28] MEDS: CEPHALEXIN 250 MG/5 ML 100ML NG SCH ×4 (00:58→17:10)
[2017-06-28] MEDS: FLUDROCORTISONE ACETATE 0.1MG TABLET NG SCH ×3 (05:47→22:17)
[2017-06-28] MEDS: LANSOPRAZOLE 30MG DR CAPSULE NG SCH (05:47)
[2017-06-28] MEDS: LEVOTHYROXINE SODIUM 50MCG TABLET PO SCH (05:47)
[2017-06-28] MEDS: CARBIDOPA/LEVODOPA 25/100MG TABLET NG SCH ×3 (05:47→22:17)
[2017-06-28 06:03] LABS: CARBON DIOXIDE 34 mEq/L (21-32); CHLORIDE 106 mEq/L (98-107); PHOSPHORUS 2.4 mg/dL (2.5-4.9)
[2017-06-28 06:25] LABS: BASOPHILS % 0.5 % (0.0-2.0); EOSINOPHILS % 0.3 % (0.0-5.0); HEMATOCRIT. 32.9 % (36.0-48.0); HEMOGLOBIN. 11.1 g/dL (12.0-16.0); LYMPHOCYTES % 30.3 % (20.0-50.0); MEAN CORPUSCULAR VOLUME 97.9 fL (81.0-99.0); MEAN PLATELET VOLUME 8.6 fl (7.4-10.4); MONOCYTES % 6.2 % (2.0-8.0); NEUTROPHILS % 62.7 % (40.0-76.0); PLATELET 231 x1000/uL (130-400); RED BLOOD CELL COUNT 3.36 mill/uL (4.2-5.4); RED CELL DISTRIBUTION WIDTH 12.8 % (11.6-14.6)
[2017-06-28] MEDS: VALPROATE SODIUM 250MG/5ML UDC NG SCH ×2 (08:19→17:10)
[2017-06-28] MEDS: TOPIRAMATE 100MG TABLET NG SCH (08:19)
[2017-06-28] MEDS: LEVETIRACETAM 500MG/5ML CUP PEG SCH ×2 (08:19→20:21)
[2017-06-28] MEDS: SODIUM CHLORIDE 1000MG TABLET PO SCH (08:20)
[2017-06-28] MEDS: CITALOPRAM HYDROBROMIDE 20MG TABLET NG SCH (08:21)
[2017-06-28] MEDS: FOLIC ACID 1MG TABLET PO SCH (08:21)
[2017-06-28] MEDS: HYDROCORTISONE 20MG TABLET PO SCH ×2 (08:21→18:02)
[2017-06-28] MEDS: MICONAZOLE NITRATE 2% OINT 71GM TOP SCH ×2 (08:22→20:23)
[2017-06-28] MEDS ORDERED: GADOBENATE DIMEGLUMINE 529 MG/ML 10ML IV ONE (11:30)
[2017-06-28] MEDS: ENOXAPARIN 40MG/0.4ML SYR SUBCUT SCH (11:55)
[2017-06-28] MEDS ORDERED: POTASSIUM PHOS,M-BASIC-D-BASIC 20 MMOL in DEXT 5% WATER 243.3333 ML IV NR (13:00)
[2017-06-28] MEDS: BENZTROPINE MESYLATE 1MG TABLET NG SCH (20:22)
[2017-06-28] MEDS ORDERED: OLANZAPINE 5MG TABLET PO SCH (21:00)
[2017-06-29] VITALS (8 sets, daily range): BP systolic 99–137; BP diastolic 52–79
[2017-06-29] MEDS: CEPHALEXIN 250 MG/5 ML 100ML NG SCH ×2 (00:17→05:54)
[2017-06-29] MEDS: MIDODRINE HCL 5MG TABLET PO SCH ×2 (02:11→08:43)
[2017-06-29] MEDS: LANSOPRAZOLE 30MG DR CAPSULE NG SCH (05:54)
[2017-06-29] MEDS: LEVOTHYROXINE SODIUM 50MCG TABLET PO SCH (05:54)
[2017-06-29] MEDS: FLUDROCORTISONE ACETATE 0.1MG TABLET NG SCH (05:54)
[2017-06-29] MEDS: CARBIDOPA/LEVODOPA 25/100MG TABLET NG SCH (05:54)
[2017-06-29 06:45] LABS: CARBON DIOXIDE 34 mEq/L (21-32); CHLORIDE 103 mEq/L (98-107)
[2017-06-29] MEDS: FOLIC ACID 1MG TABLET PO SCH (08:42)
[2017-06-29] MEDS: HYDROCORTISONE 20MG TABLET PO SCH (08:42)
[2017-06-29] MEDS: TOPIRAMATE 100MG TABLET NG SCH (08:43)
[2017-06-29] MEDS: VALPROATE SODIUM 250MG/5ML UDC NG SCH (08:43)
[2017-06-29] MEDS: LEVETIRACETAM 500MG/5ML CUP PEG SCH (08:43)
[2017-06-29] MEDS: CITALOPRAM HYDROBROMIDE 20MG TABLET NG SCH (08:47)
[2017-06-30 08:20] LABS: FOLICLE STIMULATING HORMONE 64.1 mIU/mL (.); LUTEINIZING HORMONE 29.9 mIU/mL (.)
== END 2017-06-29 12:50 | DRG 871 ==
LOC: ER 12:55 → 5WST 14:24 → EDBEDREQSVC 14:26 → EDBEDREQTM 14:26 → EDBEDREQ 14:26 → ENRESERV 14:51 → CVICU 06-21 20:15 → 3WST 06-26 16:44
PROVIDERS: ADMIT Specialist; ATTEND Specialist
PROC: 06H033Z Insertion of Infusion Device into Inferior Vena Cava, Percutaneous Approach (ICD-10-PCS; 2017-06-12)
PROC: B549ZZA Ultrasonography of Inferior Vena Cava, Guidance (ICD-10-PCS; 2017-06-12)
PROC: 0DB68ZX Excision of Stomach, Via Natural or Artificial Opening Endoscopic, Diagnostic (ICD-10-PCS; 2017-06-19)
PROC: 0DH63UZ Insertion of Feeding Device into Stomach, Percutaneous Approach (ICD-10-PCS; principal; 2017-06-19 15:00)
DX: A41.9 Sepsis, unspecified organism (principal); E43 Unspecified severe protein-calorie malnutrition; N17.0 Acute kidney failure with tubular necrosis; E87.0 Hyperosmolality and hypernatremia; I11.0 Hypertensive heart disease with heart failure; I95.9 Hypotension, unspecified; I50.1 Left ventricular failure, unspecified; E27.49 Other adrenocortical insufficiency; G20 Parkinson's disease; N39.0 Urinary tract infection, site not specified; F20.0 Paranoid schizophrenia; E27.40 Unspecified adrenocortical insufficiency; E27.1 Primary adrenocortical insufficiency; E87.1 Hypo-osmolality and hyponatremia; F03.90 Unspecified dementia, unspecified severity, without behavioral disturbance, psychotic disturbance, mood disturbance, and anxiety; R13.12 Dysphagia, oropharyngeal phase; E86.0 Dehydration; K29.60 Other gastritis without bleeding; R62.7 Adult failure to thrive; B35.1 Tinea unguium; B96.4 Proteus (mirabilis) (morganii) as the cause of diseases classified elsewhere; D64.9 Anemia, unspecified; E03.9 Hypothyroidism, unspecified; E83.39 Other disorders of phosphorus metabolism; E83.42 Hypomagnesemia; E83.51 Hypocalcemia; G40.909 Epilepsy, unspecified, not intractable, without status epilepticus; J44.9 Chronic obstructive pulmonary disease, unspecified; K21.0 Gastro-esophageal reflux disease with esophagitis; Z96.611 Presence of right artificial shoulder joint; R73.9 Hyperglycemia, unspecified; F41.9 Anxiety disorder, unspecified; F31.9 Bipolar disorder, unspecified; K27.9 Peptic ulcer, site unspecified, unspecified as acute or chronic, without hemorrhage or perforation; Z79.82 Long term (current) use of aspirin; Z79.899 Other long term (current) drug therapy; Z86.73 Personal history of transient ischemic attack (TIA), and cerebral infarction without residual deficits; Z88.1 Allergy status to other antibiotic agents; Z87.11 Personal history of peptic ulcer disease; Z68.28 Body mass index [BMI] 28.0-28.9, adult
CPT/HCPCS: 36415; 36569; 36600; 51702; 70450; 70544; 70553; 71010; 73030; 76937; 80048; 80053; 80061; 80069; 80076; 80305; 81001; 82024; 82140; 82248; 82330; 82375; 82533; 82550; 82553; 82570; 82805; 82962; 83001; 83002; 83036; 83605; 83735; 84100; 84133; 84134; 84146; 84156; 84300; 84439; 84443; 84484; 84550; 85025; 85379; 85610; 85730; 86677; 87040; 87077; 87086; 87186; 88305; 88312; 88313; 92610; 93005; 93306; 96360; 99285; A4216; A6261; A9577; J0690; J0834; J1650; J1953; J2250; J3010; J3475; J3490; J7030; J7040; J7050; J7060; J7070; A4315